=== PATIENT | female | born 2000 | race Caucasian/White ===

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

== ENCOUNTER 2021-01-20 22:57 | Emergency (ER) | payer OTHER ==
[~2021-01-20] VITALS: Ht 167.6 cm; Wt 65.4 kg
[2021-01-20 22:58] VITALS: BP 144/91
--- NOTE | 2021-01-20 23:05 | NUR ---
RING REMOVED BY THIS RN IN TRIAGE, PT TOLERATED WELL.
--- NOTE | 2021-01-20 23:08 | NUR ---
Patient given discharge instructions and they have confirmed that they understand the instructions. Patient ambulatory with steady gait. NAD, all questions answered appropriately, denies additional needs at this time. No personal belongings left in room after discharge.
== END 2021-01-20 23:11 | disposition home or self-care (01) ==
LOC: ED 23:00
DX: S60.454A Superficial foreign body of right ring finger, initial encounter (principal); W49.04XA Ring or other jewelry causing external constriction, initial encounter; X58.XXXA Exposure to other specified factors, initial encounter; Y93.89 Activity, other specified; Y92.89 Other specified places as the place of occurrence of the external cause; Y99.8 Other external cause status; F17.210 Nicotine dependence, cigarettes, uncomplicated
CPT/HCPCS: 99284; 99406